=== PATIENT | male | born 1975 | race American Indian/Alaskan Native ===

== ENCOUNTER 2016-12-27 17:04 | Emergency (ER) | payer MEDICAID, OTHER ==
[2016-12-27] MEDS ORDERED: Ondansetron 4 MG/2 ML SDV IV ONE ×2 (17:30→18:04)
[2016-12-27] MEDS ORDERED: HYDROmorphone 1 MG/ML Syringe IVPUSH ONE ×2 (17:30→18:04)
[2016-12-27] MEDS ORDERED: Sodium Chloride 0.9% 1,000 ML IV ONE (17:30)
[2016-12-27] MEDS ORDERED: Sodium Chloride 0.9% 10 ML Syringe FLUSH PRN (17:30)
[2016-12-27] MEDS ORDERED: Iopamidol 612 MG/ML 100 ML Bottle IVPUSH ONE (17:31)
[2016-12-27 18:00] LABS: CHLORIDE,CL 94 mmol/L (101-111); SODIUM,NA 132 mmol/L (135-145)
[2016-12-27] MEDS ORDERED: Piperacillin/Tazobactam 3.375 GM in Sodium Chloride 0.9% 100 ML IV ONE (18:00)
--- NOTE | 2016-12-27 18:12 | CT ---
Focal history: 41-year-old male with right lower quadrant pain and elevated white blood cell count ( WBC 26,000). TECHNIQUE: Volume acquisition of data emergency CT scan of the abdomen and pelvis following intraven ous infusion of nonionic Isovue contrast while patient was lying supine on the Siemens multi slice C T scanner [place], [place]. All data archived in the PACS system for storage, reformatting and study. Interpretation: Abnormal. Long distended edematous thick-walled appendix with calcification (appendicolith) at the orifice margaret ntified in the RLQ. Significantly, extensive surrounding inflammatory "dirty" peritoneal fat charact eristic of acute inflammation. No abscess or associated evidence of mechanical small bowel obstructi on. No ascites or free intraperitoneal air. Gallbladder, liver, stomach, spleen, pancreas and adrenal glands unremarkable. Normal reniform size, axis and configuration. (Tiny cyst posterior midpole left kidney) No nephrolithiasis or obstructive uropathy. No pelvic or abdominal mass lesion and no retroperitoneal lymphadenopathy. Normal caliber aortoiliac vessels. note: Posterior segment right lower lobe atelectasis. CONCLUSION: Acute appendicitis.
--- NOTE | 2016-12-27 18:17 | EDM.PDOC ---
Scribed by Avani Strong 12/27/16 [id number] for Hector Coffey MD ED HPI GENERAL MEDICAL PROBLEM - General Chief Complaint: Abdominal Pain Stated Complaint: SEVERE ABD PAINS, [id number] Time Seen by Provider: 12/27/16 17:26 Source of Information: Reports: Patient, RN, RN Notes Reviewed History Limitations: Reports: No Limitations - History of Present Illness INITIAL COMMENTS - FREE TEXT/NARRATIVE: Patient arrives by POV with complaint of severe right lower quadrant pain that started yesterday. He last ate at 2 p.m. some mashed potatoes and a bite of hot dog but threw it all up. He has not eaten since then. Complains of fever, chills and diaphoresis. Onset Date: 12/26/16 Duration: Getting Worse Location: Reports: Abdomen Quality: Reports: Ache Severity: Severe Improves with: Reports: None Worsens with: Reports: None Associated Symptoms: Reports: No Other Symptoms Right Lower Abdomen Pain Score (Numeric/FACES): 8 - Related Data Allergies Allergy/AdvReac Type Severity Reaction Status Date / Time bee venom protein (honey bee) Allergy Anaphylactic Verified 12/27/16 17:21 Shock Home Meds: Home Meds . [No Known Home Meds] 12/27/16 [History] Social & Family History - Family History Family Medical History: Noncontributory - Tobacco Use Smoking Status *Q: Never Smoker - Caffeine Use Caffeine Use: Reports: Coffee, Soda - Alcohol Use Days Per Week of Alcohol Use: 2 Number of Drinks Per Day: 8 Total Drinks Per Week: 16 - Recreational Drug Use Recreational Drug Use: No ED ROS GENERAL - Review of Systems Review Of Systems: ROS reveals no pertinent complaints other than HPI. ED EXAM, GI/ABD - Physical Exam Exam: See Below Exam Limited By: No Limitations General Appearance: Alert, WD/WN, Moderate Distress (secondary to pain.) Eyes: Bilateral: Normal Appearance Nose: Normal Inspection Throat/Mouth: Normal Inspection, Normal Lips, Normal Gums, Normal Oropharynx, Normal Voice, No Airway Compromise Head: Atraumatic, Normocephalic Neck: Normal Inspection, Supple, Non-Tender, Full Range of Motion Respiratory/Chest: No Respiratory Distress Cardiovascular: Normal Peripheral Pulses, Regular Rate, Rhythm, No Edema, No Gallop, No JVD, No Murmur, No Rub, Tachycardia GI/Abdominal Exam: Normal Bowel Sounds, Soft, No Distention, Guarding, Rebound ( right lower quadrant), Tender (acutely tender right lower quadrant with peritoneal signs.). No: Rigid (Male) Exam: Deferred Rectal (Males) Exam: Deferred Back Exam: Normal Inspection Extremities: Normal Inspection Neurological: Alert, Oriented, CN II-XII Intact, Normal Cognition, Normal Gait, No Motor/Sensory Deficits Psychiatric: Normal Affect, Normal Mood Skin Exam: Intact, Normal Color, No Rash, Diaphoretic Course - Vital Signs Last Recorded V/S: Last Vital Signs Temp 35.9 C 12/27/16 17:22 Pulse 106 H 12/27/16 17:22 Resp 20 12/27/16 17:22 BP 131/87 12/27/16 17:22 Pulse Ox 97 12/27/16 17:22 - Orders/Labs/Meds Orders: Active Orders 24 hr Category Date Time Status Peripheral IV Care [RC] . DIRECTED Care 12/27/16 17:31 Active CHLAMYDIA TRACHOMATIS/GC AMPLF Routine Lab 12/27/16 18:03 Ordered CULTURE URINE [RM] Stat Lab 12/27/16 18:03 Ordered Piperacillin/Tazobactam [Zosyn] 3.375 gm Med 12/27/16 18:00 Active Sodium Chloride 0.9% [Normal Saline] 100 ml IV ONETIME Sodium Chloride 0.9% [Normal Saline] 1,000 ml Med 12/27/16 17:30 Active IV .BOLUS Sodium Chloride 0.9% [Saline Flush] Med 12/27/16 17:30 Active 10 ml FLUSH ASDIRECTED PRN Peripheral IV Insertion Adult [OM.PC] Stat Oth 12/27/16 17:30 Ordered Medication Orders Sodium Chloride (Normal Saline) 1,000 mls @ 999 mls/hr IV .BOLUS ONE Stop: 12/27/16 18:30 Last Admin: 12/27/16 17:39 Dose: 999 mls/hr Piperacillin Sod/Tazobactam (Sod 3.375 gm/ Sodium Chloride) 100 mls @ 200 mls/ hr IV ONETIME ONE Stop: 12/27/16 18:29 Last Admin: 12/27/16 18:07 Dose: 200 mls/hr Sodium Chloride (Saline Flush) 10 ml FLUSH ASDIRECTED PRN PRN Reason: Keep Vein Open Last Admin: 12/27/16 17:42 Dose: 10 ml Labs: Laboratory Tests 12/27/16 12/27/16 12/27/16 Range/Units 17:20 17:20 17:33 WBC 26.1 H* (5.0-10.0) 10^3/uL RBC 5.58 (4.6-6.2) 10^6/uL Hgb 16.8 (14.0-18.0) g/dL Hct 48.5 (40.0-54.0) % MCV 86.9 (80-100) fL MCH 30.1 (27.0-34.0) pg MCHC 34.6 (33.0-35.0) g/dL Plt Count 365 (150-450) 10^3/uL Neut % (Auto) 88.0 H (42.2-75.2) % Lymph % (Auto) 7.1 L (20.5-50.1) % [place] % (Auto) 4.6 (2-8) % Eos % (Auto) 0.1 L (1.0-3.0) % Baso % (Auto) 0.2 (0.0-1.0) % Add Manual Diff Yes Neutrophils % (Manual) 83 % Band Neutrophils % 3 % Lymphocytes % (Manual) 9 % Monocytes % (Manual) 5 % Platelet Estimate Adequate Sodium (135-145) mmol/L Potassium (3.6-5.0) mmol/L Chloride (101-111) mmol/L Carbon Dioxide (21.0-31.0) mmol/L Anion Gap BUN (7-18) mg/dL Creatinine (0.6-1.3) mg/dL Est Cr Clr Drug Dosing mL/min Estimated GFR (MDRD) BUN/Creatinine Ratio Glucose (74-105) mg/dL Calcium (8.4-10.2) mg/dl Total Bilirubin (0.2-1.0) mg/dL AST (10-42) IU/L ALT (10-60) IU/L Alkaline Phosphatase (42-121) IU/L Total Protein (6.7-8.2) g/dl Albumin (3.2-5.5) g/dl Globulin Albumin/Globulin Ratio Amylase (28-100) U/L Lipase (22-51) U/L Urine Color [place] (YELLOW) Urine Appearance Slightly cloudy (CLEAR) Urine pH 5.0 (5.0-9.0) Ur Specific [place] >= 1.030 (1.005-1.030) Urine Protein 100 H (NEGATIVE) Urine Glucose (UA) Negative (NEGATIVE) Urine Ketones 15 H (NEGATIVE) Urine Occult Blood Negative (NEGATIVE) Urine Nitrite Positive H (NEGATIVE) Urine Bilirubin Large H (NEGATIVE) Urine Urobilinogen 1.0 (0.2-1.0) mg/dL Ur Leukocyte Esterase Negative (NEGATIVE) Urine RBC 0-5 /HPF Urine WBC 5-10 H (0-5/HPF) /HPF Ur Epithelial Cells Many H /HPF Amorphous Sediment Few (0/HPF) /HPF Urine Bacteria Many H (0-FEW/HPF) /HPF Hyaline Casts Many H /LPF Granular Casts Few /LPF Urine Mucus Many H /LPF Urine Opiates Screen Negative (NEGATIVE) Ur Oxycodone Screen Negative (NEGATIVE) Urine Methadone Screen Negative (NEGATIVE) Ur Barbiturates Screen Negative (NEGATIVE) U Tricyclic Antidepress Negative (NEGATIVE) Ur Phencyclidine Scrn Negative (NEGATIVE) Ur Amphetamine Screen Negative (NEGATIVE) U Methamphetamines Scrn Negative (NEGATIVE) Urine MDMA Screen Negative (NEGATIVE) U Benzodiazepines Scrn Negative (NEGATIVE) Urine Cocaine Screen Negative (NEGATIVE) U Marijuana (THC) Screen Negative (NEGATIVE) Ethyl Alcohol mg/dL 12/27/16 Range/Units 17:33 WBC (5.0-10.0) 10^3/uL RBC (4.6-6.2) 10^6/uL Hgb (14.0-18.0) g/dL Hct (40.0-54.0) % MCV (80-100) fL MCH (27.0-34.0) pg MCHC (33.0-35.0) g/dL Plt Count (150-450) 10^3/uL Neut % (Auto) (42.2-75.2) % Lymph % (Auto) (20.5-50.1) % [place] % (Auto) (2-8) % Eos % (Auto) (1.0-3.0) % Baso % (Auto) (0.0-1.0) % Add Manual Diff Neutrophils % (Manual) % Band Neutrophils % % Lymphocytes % (Manual) % Monocytes % (Manual) % Platelet Estimate Sodium 132 L (135-145) mmol/L Potassium 4.4 (3.6-5.0) mmol/L Chloride 94 L (101-111) mmol/L Carbon Dioxide 22.0 (21.0-31.0) mmol/L Anion Gap 20.4 BUN 24 H (7-18) mg/dL Creatinine 1.5 H (0.6-1.3) mg/dL Est Cr Clr Drug Dosing 60.59 mL/min Estimated GFR (MDRD) 52 BUN/Creatinine Ratio 16.00 Glucose 120 H (74-105) mg/dL Calcium 9.1 (8.4-10.2) mg/dl Total Bilirubin 4.4 H (0.2-1.0) mg/dL AST 32 (10-42) IU/L ALT 28 (10-60) IU/L Alkaline Phosphatase 98 (42-121) IU/L Total Protein 8.9 H (6.7-8.2) g/dl Albumin 4.3 (3.2-5.5) g/dl Globulin 4.6 Albumin/Globulin Ratio 0.93 Amylase 12 L (28-100) U/L Lipase 17 L (22-51) U/L Urine Color (YELLOW) Urine Appearance (CLEAR) Urine pH (5.0-9.0) Ur Specific [place] (1.005-1.030) Urine Protein (NEGATIVE) Urine Glucose (UA) (NEGATIVE) Urine Ketones (NEGATIVE) Urine Occult Blood (NEGATIVE) Urine Nitrite (NEGATIVE) Urine Bilirubin (NEGATIVE) Urine Urobilinogen (0.2-1.0) mg/dL Ur Leukocyte Esterase (NEGATIVE) Urine RBC /HPF Urine WBC (0-5/HPF) /HPF Ur Epithelial Cells /HPF Amorphous Sediment (0/HPF) /HPF Urine Bacteria (0-FEW/HPF) /HPF Hyaline Casts /LPF Granular Casts /LPF Urine Mucus /LPF Urine Opiates Screen (NEGATIVE) Ur Oxycodone Screen (NEGATIVE) Urine Methadone Screen (NEGATIVE) Ur Barbiturates Screen (NEGATIVE) U Tricyclic Antidepress (NEGATIVE) Ur Phencyclidine Scrn (NEGATIVE) Ur Amphetamine Screen (NEGATIVE) U Methamphetamines Scrn (NEGATIVE) Urine MDMA Screen (NEGATIVE) U Benzodiazepines Scrn (NEGATIVE) Urine Cocaine Screen (NEGATIVE) U Marijuana (THC) Screen (NEGATIVE) Ethyl Alcohol < 5 mg/dL Meds: Medications Generic Name Dose Route Start Last Admin Trade Name Freq PRN Reason Stop Dose Admin Sodium Chloride 1,000 mls @ 999 mls/hr 12/27/16 17:30 12/27/16 17:39 Normal Saline IV 12/27/16 18:30 999 mls/hr .BOLUS ONE Administration Piperacillin Sod/Tazobactam 100 mls @ 200 mls/hr 12/27/16 18:00 12/27/16 18: 07 Sod 3.375 gm/ Sodium Chloride IV 12/27/16 18:29 200 mls/hr ONETIME ONE Administration Sodium Chloride 10 ml 12/27/16 17:30 12/27/16 17:42 Saline Flush FLUSH 10 ml ASDIRECTED PRN Administration Keep Vein Open Discontinued Medications Generic Name Dose Route Start Last Admin Trade Name Freq PRN Reason Stop Dose Admin Hydromorphone HCl 1 mg 12/27/16 17:30 12/27/16 17:40 Dilaudid IVPUSH 12/27/16 17:31 1 mg ONETIME ONE Administration Hydromorphone HCl 1 mg 12/27/16 18:04 12/27/16 18:12 Dilaudid IVPUSH 12/27/16 18:05 1 mg ONETIME ONE Administration Iopamidol 100 ml 12/27/16 17:31 12/27/16 17:47 Isovue-300 (61%) IVPUSH 12/27/16 17:32 100 ml ONETIME ONE Administration Ondansetron HCl 4 mg 12/27/16 17:30 12/27/16 17:42 Zofran IV 12/27/16 17:31 4 mg ONETIME ONE Administration Ondansetron HCl 4 mg 12/27/16 18:04 12/27/16 18:10 Zofran IV 12/27/16 18:05 4 mg ONETIME ONE Administration - Radiology Interpretation Free Text/Narrative:: CT abdomen and pelvis: Acute appendicitis. See rad report. Departure - Departure Time of Disposition: 18:13 Disposition: DC/Tfer to Acute Hospital 02 Condition: Serious Clinical Impression: Acute appendicitis Qualifiers: Acute appendicitis type: with localized peritonitis Qualified Code(s): K35.3 - Acute appendicitis with localized peritonitis - Discharge Information Forms: ED Department Discharge, Interfacility Transfer EMTALA - My Orders Last 24 Hours: My Active Orders 12/27/16 17:30 Sodium Chloride 0.9% [Normal Saline] 1,000 ml IV .BOLUS Sodium Chloride 0.9% [Saline Flush] 10 ml FLUSH ASDIRECTED PRN Peripheral IV Insertion Adult [OM.PC] Stat 12/27/16 17:31 Peripheral IV Care [RC] . DIRECTED 12/27/16 18:00 Piperacillin/Tazobactam [Zosyn] 3.375 gm Sodium Chloride 0.9% [Normal Saline] 100 ml IV ONETIME 12/27/16 18:03 CHLAMYDIA TRACHOMATIS/GC AMPLF Routine CULTURE URINE [RM] Stat - Assessment/Plan Last 24 Hours: My Active Orders 12/27/16 17:30 Sodium Chloride 0.9% [Normal Saline] 1,000 ml IV .BOLUS Sodium Chloride 0.9% [Saline Flush] 10 ml FLUSH ASDIRECTED PRN Peripheral IV Insertion Adult [OM.PC] Stat 12/27/16 17:31 Peripheral IV Care [RC] . DIRECTED 12/27/16 18:00 Piperacillin/Tazobactam [Zosyn] 3.375 gm Sodium Chloride 0.9% [Normal Saline] 100 ml IV ONETIME 12/27/16 18:03 CHLAMYDIA TRACHOMATIS/GC AMPLF Routine CULTURE URINE [RM] Stat I have read and agree with the documentation that has been completed regarding this visit. By signing this record, I attest that the documentation was completed in my physical presence and is an accurate record of the encounter.
[2016-12-27 18:30] VITALS: BP 122/81
== END 2016-12-27 18:24 ==
LOC: DL.ED 17:04
DX: K35.3 Acute appendicitis with localized peritonitis (principal); Z91.030 Bee allergy status
CPT/HCPCS: 36415; 74177; 80053; 80305; 81001; 82150; 83690; 85025; 87086; 96365; 96375; 99285; G0480; J1170; J2405; J2543; J7030; J7050; Q9967; 99284